=== PATIENT | female | born 1980 | race African-American/Black ===

== ENCOUNTER 2019-02-04 12:46 | Emergency (ER) | payer SELFPAY ==
[~2019-02-04] VITALS: Ht 160 cm; Wt 90.5 kg
[~2019-02-04 12:46] MED LIST: AMOXICILLIN 50500 MG PO; NO HOME MEDICATIONS; NORCO 325 MG-51 TAB PO
[2019-02-04 12:50] VITALS: BP 131/70
[2019-02-04 13:28] LABS: STREP SCREEN NEGATIVE
[2019-02-04 14:20] VITALS: PULSE 92; TEMP 98.4
== END 2019-02-04 14:25 | disposition home or self-care (01) ==
LOC: COL.ER 12:46
PROVIDERS: Emergency Medicine
DX: B34.9 Viral infection, unspecified (principal); F17.210 Nicotine dependence, cigarettes, uncomplicated; Z98.890 Other specified postprocedural states

== ENCOUNTER 2020-08-10 00:11 | Emergency (ER) | payer OTHER ==
[~2020-08-10] VITALS: Ht 160 cm; Wt 100.0 kg
[2020-08-10 00:21] VITALS: TEMP 98.7
[2020-08-10] MEDS ORDERED: AMOXICILLIN 8751 TAB PO (00:39)
[2020-08-10 00:48] VITALS: BP 149/91; PULSE 89
== END 2020-08-10 00:48 | disposition home or self-care (01) ==
LOC: COL.ER 00:11
DX: K05.30 Chronic periodontitis, unspecified (principal); F17.210 Nicotine dependence, cigarettes, uncomplicated; Z88.5 Allergy status to narcotic agent; E66.9 Obesity, unspecified

== ENCOUNTER 2021-07-01 11:00 | Emergency (ER) | payer BC ==
[~2021-07-01] VITALS: Ht 160 cm; Wt 100.0 kg
[~2021-07-01 11:00] MED LIST changes: +AMOXICILLIN 8751 TAB PO
[2021-07-01 11:08] VITALS: BP 134/90; TEMP 98
[2021-07-01] MEDS ORDERED: PEN-VEE K500 MG PO (11:23)
[2021-07-01 11:30] VITALS: PULSE 74
== END 2021-07-01 11:30 | disposition home or self-care (01) ==
LOC: COL.ER 11:00
DX: K08.89 Other specified disorders of teeth and supporting structures (principal); F17.200 Nicotine dependence, unspecified, uncomplicated; Z88.6 Allergy status to analgesic agent

== ENCOUNTER 2021-11-16 06:13 | Emergency (ER) | payer BC ==
[~2021-11-16] VITALS: Ht 160 cm; Wt 127.3 kg
[~2021-11-16 06:13] MED LIST changes: +PEN-VEE K500 MG PO
[2021-11-16 07:11] LABS: COLLECTION METHOD CLEAN CATCH
[2021-11-16 07:19] LABS: MEAN CELL VOLUME 70 fl (80.0-100.0); MEAN CORPUSCULAR HGB CONC 29 g/dl (33.0-37.0); MEAN PLATELET VOLUME 9.2 fl (7.4-10.4); PLATELET COUNT 626 K/mm3 (130-400); RED BLOOD COUNT 3.76 M/mm3 (4.10-5.30); REDCELL DISTRIBUTION WIDTH-CV 21.3 % (11.5-14.5)
[2021-11-16 07:26] LABS: HEMATOCRIT 26.2 % (37.0-47.0); HEMOGLOBIN 7.7 g/dl (12.5-16.0); MEAN CORPUSCULAR HEMOGLOBIN 20 pg (27-31)
[2021-11-16 07:28] LABS: BUDDING YEAST Present (NOT PRESENT); MUCOUS Present (NOT PRESENT); SQUAMOUS EPITHELIAL 0-2 /hpf (0-10); URINE APPEARANCE Hazy (CLEAR/HAZY); URINE BACTERIA Rare /hpf (NONE SEEN); URINE COLOR Yellow (YELLOW); URINE RBC >50 /hpf (0-2)
[2021-11-16 07:29] LABS: PH 5.5 (5.0-8.5); URINE BLOOD 3+ (NEGATIVE); URINE GLUCOSE Negative (NEGATIVE); URINE KETONE Negative (NEGATIVE); URINE NITRATE Positive (NEGATIVE); URINE PROTEIN(semi-quant) 2+ (NEGATIVE); URINE UROBILINOGEN 0.2 E.U/dL (0.2-1.0)
[2021-11-16 07:33] LABS: ALBUMIN 2.9 gm/dL (3.5-5.0); BILIRUBIN,TOTAL 0.6 mg/dL (0.2-1.2); CALCIUM 8.5 mg/dL (8.4-10.2); CREATININE, serum 1.02 mg/dL (0.57-1.11); POTASSIUM 3.8 mmol/L (3.5-4.5); TOTAL PROTEIN 7.3 gm/dL (6.2-8.1)
[2021-11-16 07:50] LABS: BAND 3 % (0-10); LYMPHOCYTE 11 % (20.0-51.0); NEUTROPHILS 79 % (42.0-75.2); PLATELET ESTIMATE INCREASED (NORMAL)
[2021-11-16 07:51] LABS: ANISOCYTOSIS 2+; HYPOCHROMIA 3+; MICROCYTOSIS 2+
[2021-11-16 07:53] LABS: OVALOCYTES 1+; TARGET CELLS 1+
[2021-11-16] MEDS ORDERED: NORCO 325 MG-51 TAB PO (08:31)
[2021-11-16] MEDS ORDERED: VANTIN 200200 MG/TAB PO (08:31)
[2021-11-16] MEDS ORDERED: ZOFRAN ODT4 MG PO (08:31)
[2021-11-16 09:01] VITALS: BP 129/60; PULSE 100; TEMP 97.7
== END 2021-11-16 09:04 | disposition home or self-care (01) ==
LOC: COL.ER 06:13
PROVIDERS: Emergency Medicine
DX: N12 Tubulo-interstitial nephritis, not specified as acute or chronic (principal); N39.0 Urinary tract infection, site not specified; Z88.5 Allergy status to narcotic agent; Z20.822 Contact with and (suspected) exposure to COVID-19; Z32.02 Encounter for pregnancy test, result negative; Z28.310 Unvaccinated for COVID-19
CPT/HCPCS: J0696; J2405; J3010; J7030; Q9967